=== PATIENT | female | born 1945 | race Caucasian/White ===

== ENCOUNTER 2017-07-04 23:13 | Emergency (ER) | payer MEDICARE, BC ==
[2017-07-04 23:31] VITALS: BP 155/98
[2017-07-04] MEDS ORDERED: predniSONE 20 MG Tab PO ONE (23:43)
[2017-07-04] MEDS ORDERED: diphenhydrAMINE 50 MG Cap PO ONE (23:43)
--- NOTE | 2017-07-04 23:50 | EDM.PDOC ---
ED HPI GENERAL MEDICAL PROBLEM - General Chief Complaint: Bite:Animal, Insect Stated Complaint: BEE STING Time Seen by Provider: 07/04/17 23:35 Source of Information: Reports: Patient, RN Notes Reviewed - History of Present Illness INITIAL COMMENTS - FREE TEXT/NARRATIVE: 71-year-old lady stung by a bee or wasp about 5 hours ago left index finger. The finger and entire dorsum of her hand has become quite swollen. No generalized rash or erythema. No throat or facial swelling. No wheezing or difficulty breathing. She and family were at the musical this evening. She has not taken Benadryl or any other medication. No history of anaphylaxis to be or wasp stings in the past. Left Hand Pain Score (Numeric/FACES): 4 - Related Data Allergies Allergy/AdvReac Type Severity Reaction Status Date / Time Penicillins Allergy Rash Verified 07/04/17 23:31 Home Meds: Home Meds Aspirin [Halfprin] 81 mg PO DAILY 07/04/17 [History] Diltiazem HCl [Cardizem] 60 mg PO DAILY 07/04/17 [History] Past Medical History Cardiovascular History: Reports: Arrhythmia Oncologic (Cancer) History: Reports: Bladder - Past Surgical History Female Surgical History: Reports: TURBT Musculoskeletal Surgical History: Reports: ORIF Social & Family History - Tobacco Use Smoking Status *Q: Never Smoker - Caffeine Use Caffeine Use: Reports: None - Recreational Drug Use Recreational Drug Use: No ED ROS GENERAL - Review of Systems Review Of Systems: See Below Constitutional: Denies: Fever, Chills, Diaphoresis HEENT: Reports: Other. Denies: Throat Pain, Throat Swelling Respiratory: Denies: Shortness of Breath (No facial swelling), Wheezing Cardiovascular: Denies: Chest Pain GI/Abdominal: Denies: Abdominal Pain, Nausea, Vomiting Musculoskeletal: Reports: Other (Swelling discomfort left index finger and left hand) Skin: Reports: Erythema (Dorsum of left hand) Neurological: Denies: Numbness, Tingling ED EXAM, ANIMAL BITE - Physical Exam Exam: See Below General Appearance: Alert, No Apparent Distress Eye Exam: Bilateral Eye: PERRL Throat/Mouth: Normal Inspection, Normal Oropharynx Head: No: Facial Swelling Neck: Supple, Full Range of Motion Respiratory/Chest: No Respiratory Distress, Lungs Clear, Normal Breath Sounds. No: Wheezing Cardiovascular: Regular Rate, Rhythm Extremities: Redness, Other (Moderate diffuse swelling dorsum of left hand and also left index finger, no stinger visible or palpable) Neurological: Alert, Oriented, No Motor/Sensory Deficits Skin Exam: Warm/Dry, Other (Skin is otherwise clear, no other area of hives or erythema) Course - Vital Signs Last Recorded V/S: Last Vital Signs Temp 96.4 F 07/04/17 23:27 Pulse 77 07/04/17 23:27 Resp 16 07/04/17 23:27 BP 155/98 H 07/04/17 23:27 Pulse Ox 97 07/04/17 23:27 - Orders/Labs/Meds Meds: Medications Discontinued Medications Generic Name Dose Route Start Last Admin Trade Name Freq PRN Reason Stop Dose Admin Diphenhydramine HCl 50 mg 07/04/17 23:43 Benadryl PO 07/04/17 23:44 ONETIME ONE Prednisone 40 mg 07/04/17 23:43 Prednisone PO 07/04/17 23:44 ONETIME ONE - Re-Assessments/Exams Free Text/Narrative Re-Assessment/Exam: 07/04/17 23:54 Have given Benadryl 50 mg by mouth, prednisone 40 mg by mouth. Departure - Departure Time of Disposition: 23:55 Disposition: Home, Self-Care 01 Condition: Fair Clinical Impression: Wasp sting Qualifiers: Encounter type: initial encounter Injury intent: accidental or unintentional Qualified Code(s): T63.461A - Toxic effect of venom of wasps, accidental ( unintentional), initial encounter - Discharge Information Referrals: PCP,Not In Area [Primary Care Provider] - Forms: ED Department Discharge Additional Instructions: Benadryl 50 mg to 3 times daily or Claritin 10 mg daily for antihistamine effect , prednisone 40 mg for the next 3 mornings, elevate hand as much as possible, intermittent ice packs until swelling is completely gone, return to ED if symptoms worsening, especially for throat tightness difficulty breathing, swelling of the mouth or face or generalized hives.
== END 2017-07-04 23:58 | disposition home or self-care (01) ==
LOC: JD.ED 23:13
DX: T63.461A Toxic effect of venom of wasps, accidental (unintentional), initial encounter (principal); Z88.0 Allergy status to penicillin; Z79.82 Long term (current) use of aspirin; Z79.899 Other long term (current) drug therapy; Z98.890 Other specified postprocedural states; Z85.51 Personal history of malignant neoplasm of bladder
CPT/HCPCS: 99283; A9270